=== PATIENT | female | born 1980 | race Caucasian/White ===

== ENCOUNTER → 2017-02-04 | Outpatient (CLI) | payer BC | LOC: MW.CHOBGYN 11:03 | PROVIDERS: ATTEND Obstetrics & Gynecology | DX: Z30.09 Encounter for other general counseling and advice on contraception (principal) | CPT/HCPCS: 81025 ==

== ENCOUNTER 2020-11-15 18:17 | Emergency (ER) | payer BC ==
--- NOTE | 2020-11-15 19:04 | EDM.PDOC ---
ED HPI GENERAL MEDICAL PROBLEM - General Chief Complaint: Genitourinary Problem Stated Complaint: SICK Time Seen by Provider: 11/15/20 18:34 Source of Information: Reports: Patient History Limitations: Reports: No Limitations - History of Present Illness INITIAL COMMENTS - FREE TEXT/NARRATIVE: Presents reporting pelvic pain mostly on the left side. The patient states that she has a Mirena IUD which was placed the first week in October. Since that time she has had bleeding with clots, emotional lability, constant stabbing pelvic pain and hot sweats. She has been nauseated today and miserable. She said she was hung over this morning from drinking last night. She has tried hot baths, Aleve, tramadol. She denies dysuria, vomiting, fever, abdominal or back pain. She is sexually active. She is otherwise healthy without chronic medical problems. Pelvic Pain Score (Numeric/FACES): 7 - Related Data Allergies Allergy/AdvReac Type Severity Reaction Status Date / Time cat dander Allergy Itching Verified 11/15/20 18:31 dog dander Allergy Itching Verified 11/15/20 18:31 nut - unspecified Allergy Swelling Verified 11/15/20 18:31 shellfish derived Allergy Other Verified 11/15/20 18:31 Home Meds: Home Meds Albuterol [Ventolin HFA] 8 gm INH Q6H PRN 07/27/15 [History] Citalopram [Celexa] 20 mg PO DAILY 07/27/15 [History] Montelukast [Singulair] 10 mg PO DAILY 07/27/15 [History] Past Medical History HEENT History: Reports: None Cardiovascular History: Reports: None Respiratory History: Reports: Asthma Gastrointestinal History: Reports: GERD Genitourinary History: Reports: None NUTRITION ASSISTANT History: Reports: , Spontaneous Musculoskeletal History: Reports: Fracture, Other (See Below) Other Musculoskeletal History: carpal tunnel both wrists during Neurological History: Reports: Migraines Psychiatric History: Reports: Anxiety, Depression Endocrine/Metabolic History: Reports: Obesity/BMI 30+ Hematologic History: Reports: None Immunologic History: Reports: None Oncologic (Cancer) History: Reports: None Dermatologic History: Reports: None - Infectious Disease History Infectious Disease History: Reports: Chicken Pox, Influenza - Past Surgical History HEENT Surgical History: Reports: Tonsillectomy Social & Family History - Family History HEENT: Reports: Allergic Rhinitis, Otitis Media Cardiac: Reports: CAD, High Cholesterol, Hypertension, Pulmonary Hypertension Respiratory: Reports: Asthma, COPD GI: Reports: Irritable Bowel Syndrome, Jaundice OBGYN: Reports: Endometriosis, Fibroids, Musculoskeletal: Reports: Back pain, Chronic, Gout Neurological: Reports: Alzheimers Disease, Migraines Psychiatric: Reports: Anxiety, Depression, Emotional Problems Endocrine/Metabolic: Reports: Diabetes, type II, Obesity/MBI 30+ Oncologic: Reports: Brain, Colon, Metastatic, Other (See Below) Other Oncologic Family History: throat - Tobacco Use Tobacco Use Status *Q: Never Tobacco User - Caffeine Use Caffeine Use: Reports: Soda - Recreational Drug Use Recreational Drug Use: No ED ROS GENERAL - Review of Systems Review Of Systems: Comprehensive ROS is negative, except as noted in HPI. ED EXAM, RENAL/ - Physical Exam Exam: See Below Exam Limited By: No Limitations General Appearance: Alert, No Apparent Distress Ears: Normal External Exam Nose: Normal Inspection Throat/Mouth: Normal Inspection Head: Atraumatic, Other Neck: Normal Inspection Respiratory/Chest: No Respiratory Distress, Lungs Clear, Normal Breath Sounds Cardiovascular: Normal Peripheral Pulses, Regular Rate, Rhythm, No Edema GI/Abdominal: Soft (Female) Exam: Normal External Exam, Normal Speculum Exam, Adnexal Tenderness (left, slight). No: Cervical Discharge, Cervical Fluid, Cervical Lesions, Cervix Motion Tenderness, Vaginal Bleeding, Vaginal Discharge, Vaginal Lesions, Vaginal Tears Back Exam: Normal Inspection Extremities: Normal Inspection Neurological: Alert, Oriented Psychiatric: Normal Affect, Normal Mood Skin Exam: Warm, Dry, Intact, Normal Color, No Rash Lymphatic: No Adenopathy ED PROCEDURES - Additional/Other Procedure(s) Procedure(s) (Free Text): IUD removal per patient's request. The IUD strings were visualized protruding from the cervical os. They were grasped with a ring forcep and the IUD was easily removed with a gentle tug. The IUD was visualized by myself and the patient to be removed in its entirety. Course - Vital Signs Last Recorded V/S: Last Vital Signs Temp 36.2 C 11/15/20 18:32 Pulse 90 11/15/20 18:32 Resp 20 11/15/20 18:32 BP 145/80 H 11/15/20 18:32 Pulse Ox 97 11/15/20 18:32 - Orders/Labs/Meds Orders: Active Orders 24 hr Category Date Time Status Pelvis Non OB Comp [US] Stat Exams 11/15/20 18:46 Ordered CBC WITH AUTO DIFF [HEME] Stat Lab 11/15/20 18:48 Ordered HCG QUALITATIVE,URINE [URCHEM] Stat Lab 11/15/20 18:47 Ordered URINALYSIS W/MICROSCOPIC [UA W/MICROSCOPIC] [URIN] Stat Lab 11/15/20 18:47 Ordered Departure - Departure Time of Disposition: 20:51 Disposition: Home, Self-Care 01 Clinical Impression: Pelvic pain - Discharge Information Referrals: PCP,None [Primary Care Provider] - [facility] [Outside] [facility] [Outside] Additional Instructions: The following information is given to patients seen in the emergency department who are being discharged to home. This information is to outline your options for follow-up care. We provide all patients seen in our emergency department with a follow-up referral. The need for follow-up, as well as the timing and circumstances, are variable depending upon the specifics of your emergency department visit. If you don't have a primary care physician on staff, we will provide you with a referral. We always advise you to contact your personal physician following an emergency department visit to inform them of the circumstance of the visit and for follow-up with them and/or the need for any referrals to a consulting specialist. The emergency department will also refer you to a specialist when appropriate. This referral assures that you have the opportunity for follow-up care with a specialist. All of these measure are taken in an effort to provide you with optimal care, which includes your follow-up. Under all circumstances we always encourage you to contact your private physician who remains a resource for coordinating your care. When calling for follow-up care, please make the office aware that this follow-up is from your recent emergency room visit. If for any reason you are refused follow-up, please contact the [facility] Emergency Department at and asked to speak to the emergency department charge nurse. 1. Ibuprofen 2-3 tabs 3 times daily as needed for the next couple of days for pelvic pain 2. Follow-up in the clinic for continued pain. Sepsis Event Note (ED) - Evaluation Sepsis Screening Result: No Definite Risk - Focused Exam Vital Signs: Vital Signs Temp Pulse Resp BP Pulse Ox 11/15/20 18:32 36.2 C 90 20 145/80 H 97 - My Orders Last 24 Hours: My Active Orders 11/15/20 18:46 Pelvis Non OB Comp [US] Stat 11/15/20 18:47 HCG QUALITATIVE,URINE [URCHEM] Stat URINALYSIS W/MICROSCOPIC [UA W/MICROSCOPIC] [URIN] Stat 11/15/20 18:48 CBC WITH AUTO DIFF [HEME] Stat - Assessment/Plan Last 24 Hours: My Active Orders 11/15/20 18:46 Pelvis Non OB Comp [US] Stat 11/15/20 18:47 HCG QUALITATIVE,URINE [URCHEM] Stat URINALYSIS W/MICROSCOPIC [UA W/MICROSCOPIC] [URIN] Stat 11/15/20 18:48 CBC WITH AUTO DIFF [HEME] Stat
--- NOTE | 2020-11-15 20:20 | US ---
INDICATION: Left pelvic pain since IUD placed in Oct 2020. PELVIC ULTRASOUND Technique: Multiple transvaginal sonographic images of the pelvis were performed. Findings: The uterus is normal in size and contour, measuring 8.2 x 3.9 x 3.3 cm. No uterine masses are identified. The endometrium measures 9 mm in thickness and appears homogeneous. There is a poorly visualized linear echogenic structure within the uterus consistent with an IUD, somewhat low in position and likely centered within the lower uterine segment. The ovaries appear normal bilaterally. A small corpus luteum or collapsing follicle is noted within the right ovary. Color and spectral Doppler blood flow is noted in both ovaries. No adnexal masses are evident. No significant free pelvic fluid is identified. IMPRESSION: 1. No acute abnormality identified. 2. IUD within the uterus, somewhat low in position. CARITO VILLAVICENCIO MD [facility] Dictated by Kaushik Villavicencio MD @ 11/15/2020 8:15:13 PM Dictated by: Kaushik Villavicencio MD @ 11/15/2020 20:18:35 (Electronically Signed)
[2020-11-15] MEDS ORDERED: Ketorolac 60 MG/2 ML SDV IM ONE (20:43)
[2020-11-15 21:24] VITALS: BP 102/72; PULSE 84
== END 2020-11-15 21:15 | disposition home or self-care (01) ==
LOC: MW.ED 18:17
DX: R10.2 Pelvic and perineal pain (principal); J45.909 Unspecified asthma, uncomplicated; E66.9 Obesity, unspecified; Z68.35 Body mass index [BMI] 35.0-35.9, adult; Z91.048 Other nonmedicinal substance allergy status; Z91.013 Allergy to seafood; Z91.018 Allergy to other foods; Z79.899 Other long term (current) drug therapy
CPT/HCPCS: 36415; 58301; 76856; 81001; 81025; 85025; 96372; 99284; J1885; 99283